=== PATIENT | male | born 1955 | race Caucasian/White ===

== ENCOUNTER 2020-09-30 19:46 | Emergency (ER) | payer MEDICARE, OTHER ==
[~2020-09-30] VITALS: Ht 200 cm; Wt 134.7 kg
--- NOTE | 2020-09-30 20:10 | ED Upper Extremity ---
General Chief Complaint: Upper Extremity Stated Complaint: L SHOULDER INJ Source: patient Exam Limitations: no limitations History of Present Illness Date Seen by Provider: Sep 30, 2020 Time Seen by Provider: 20:03 Initial Comments Mr. Daniels is a pleasant 64-year-old gentleman who just prior to arrival was playing Frisbee golf at [employer] and using his dominant right hand he did a under conflict and immediately started having severe pain in his left shoulder just distal to the glenohumeral joint. No prior injury there no fall and not on blood thinners. He did not take anything for pain yet. He rates it as a 7 out of 10 as long as he can split his left arm using his contralateral arm. Allergies and Home Medications Allergies Coded Allergies: No Known Drug Allergies (Unverified , 09/30/20) Patient Home Medication List Home Medication List Reviewed: Yes Review of Systems Constitutional: No chills, No diaphoresis EENTM: No ear discharge, No ear pain Respiratory: No cough, No short of breath Cardiovascular: No Hx of Intervention, No palpitations Gastrointestinal: No abdominal pain, No constipation, No diarrhea, No nausea Genitourinary: No discharge, No dysuria All Other Systems Reviewed Negative Unless Noted: Yes Past Daerisg-Yrfkpi-Uzwxtu Hx Patient Social History Alcohol Use: Denies Use Drug of Choice: Denies Physical Exam Vital Signs Vital Signs - First Documented 09/30/20 20:06 Temp 36.6 Pulse 86 Resp 18 B/P (MAP) 128/86 (100) Pulse Ox 96 O2 Delivery Room Air Capillary Refill : Height, Weight, BMI Height: '" Weight: lbs. oz. kg; BMI Method: General Appearance: WD/WN, mild distress HEENT: PERRL/EOMI, pharynx normal Neck: non-tender, full range of motion, supple, normal inspection Cardiovascular: normal peripheral pulses, regular rate, rhythm, no edema Respiratory: no respiratory distress, no accessory muscle use Shoulder: bone tenderness (Proximal shaft just past the glenohumeral joint), limited ROM (Left), pain, swelling Elbow/Forearm: normal inspection, non-tender, no evidence of injury, normal ROM, Left Wrist: Yes normal inspection, Yes non-tender, Yes no evidence of injury, Yes normal ROM Hand: normal inspection, non-tender, no evidence of injury, normal ROM, Left Neurologic/Psychiatric: no motor/sensory deficits, alert, normal mood/affect, oriented x 3 Skin: normal color, warm/dry Procedures/Interventions Additional Procedures: Arthrocentesis Aspirating Progress Discussed the risks, benefits and alternatives to aspirating his left shoulder and the patient elected to do it. We used sterile gloves and sterile technique and Betadine. After the Betadine had a few minutes to dry we then cleaned with chlorhexidine and then infiltrated the area with lidocaine. Using a 18-gauge 1/2 inch needle we put the needle into the joint space and were able to aspirate just a small amount of serosanguineous secretions. Unfortunately not enough to send the lab. We infiltrated the area with 40 mg Depo-Medrol and half cc of Marcaine half percent strength. Patient tolerated procedure well. We will put a Band-Aid over the wound. Progress/Results/Core Measures Results/Orders My Orders Orders - LITZY CAO Shoulder, Left, 3 Views (09/30/20 20:07) Methylprednisolone Acetate Inj (Depo-Med (09/30/20 21:00) Lidocaine 1% Inj 20 Ml (Xylocaine 1% Inj (09/30/20 21:00) Ketorolac Injection (Toradol Injection) (09/30/20 21:15) Medications Given in ED Current Medications Medications Dose Ordered Sig/Carmina Route Start Time Stop Time Status Last Admin Dose Admin Lidocaine HCl 20 ml ONCE ONCE INJ 09/30/20 21:00 09/30/20 21:01 DC 09/30/20 21:03 20 ML Methylprednisolone Acetate 40 mg ONCE ONCE IA 09/30/20 21:00 09/30/20 21:01 DC 09/30/20 21:03 40 MG Vital Signs/I&O 09/30/20 20:06 Temp 36.6 Pulse 86 Resp 18 B/P (MAP) 128/86 (100) Pulse Ox 96 O2 Delivery Room Air Progress Progress Note : Time: 20:09 Progress Note Patient declined anything for pain. We will get a plain film 3 view left shoulder x-ray Diagnostic Imaging Diagonstic Imaging: Xray Plain Films/CT/US/NM/MRI: other (Left shoulder 3 views) Comments NAME: ERENDIRA DANIELS MED REC#: [id number] PT STATUS: REG ER : 1955 PHYSICIAN: LITZY CAO MD ADMIT DATE: 09/30/20/ER Draft Date of Exam:09/30/20 SHOULDER, LEFT, 3 VIEWS INDICATION: Left shoulder pain. COMPARISON: None available. TECHNIQUE: 3 views of the left shoulder are obtained. FINDINGS: No acute fracture or traumatic malalignment. There appears to be some mineralization around the AC joint and glenohumeral joint which could be due to cartilage calcification. No osseous erosions. Joint spaces are fairly well-preserved. IMPRESSION: 1. No acute osseous abnormality about the left shoulder. 2. Potential soft tissue mineralizations around the glenohumeral and AC joints raise the possibility of CPPD arthropathy. Dictated on workstation # [id number] Dict: 09/30/202027 Trans: 09/30/202038 [facility] [id number] Interpreted by: LILY GALLEGOS MD Electronically signed by: Reviewed: Reviewed by Me Departure Impression Primary Impression: Left shoulder pain Qualified Codes: M25.512 - Pain in left shoulder Disposition: HOME, SELF-CARE Condition: Stable Departure-Patient Inst. Decision time for Depature: 21:17 Referrals: WAQAS RIVER MD (PCP/Family) Primary Care Physician Patient Instructions: Passive Range of Motion Exercises, Neck and Shoulders, Shoulder Pain (DC) Add. Discharge Instructions: We were not able to get any fluid out of the joint but the steroid should help even if it is a tendinitis of your left shoulder. If not seeing improvement in 1 week follow-up with your primary care doctor and discuss referral to orthopedic surgery, physical therapy etc. Naproxen or ibuprofen as well as Tylenol for pain. Ice 20 minutes on every 2 hours for the first 2 days as necessary for swelling and pain. Keep the sling on for the next week until you are seen by your physician. You may take the sling off to bathe. It is reasonable also to take your arm out of the sling several times a day and do passive range of motion using your right arm. Hydrocodone 1 tablet every 6 hours as necessary for severe breakthrough pain. All discharge instructions reviewed with patient and/or family. Voiced understanding. Scripts Hydrocodone/Acetaminophen (Hydrocodone-Acetamin 5-325 mg) 1 Each Tablet 1 TAB PO Q6H PRN for PAIN-MODERATE (5-7), #12 TAB 0 Refills Prov: LITZY CAO 09/30/20 Work/School Note: Work Release Form Date Seen in the Emergency Department: Sep 30, 2020 Return to Work: Oct 01, 2020 Restrictions: Need Release from Doctor Other Restrictions Listed Below: Left arm in sling and no lifting, pushing or pulling until 10/07/2020. Copy Copies To 1: WAQAS RIVER MD, TITUS J Sep 30, 2020 20:10
--- NOTE | 2020-09-30 20:40 | Diagnostic Imaging Report ---
INDICATION: Left shoulder pain. COMPARISON: None available. TECHNIQUE: 3 views of the left shoulder are obtained. FINDINGS: No acute fracture or traumatic malalignment. There appears to be some mineralization around the AC joint and glenohumeral joint which could be due to cartilage calcification. No osseous erosions. Joint spaces are fairly well-preserved. IMPRESSION: 1. No acute osseous abnormality about the left shoulder. 2. Potential soft tissue mineralizations around the glenohumeral and AC joints raise the possibility of CPPD arthropathy. Dictated by: Dictated on workstation # [id number]
[2020-09-30] MEDS ORDERED: LIDOCAINE 1% INJ 20 ML 20 ML VIAL INJ ONE (21:00)
[2020-09-30] MEDS ORDERED: methylPREDNISolone 40 MG/ML (DEPO MEDROL) VIAL IA ONE (21:00)
[2020-09-30] MEDS ORDERED: KETOROLAC 60 MG/2 ML VIAL IM ONE (21:15)
[2020-09-30] MEDS ORDERED: ACHD5005 PO (21:19)
[2020-09-30 21:42] VITALS: BP 124/76
== END 2020-09-30 21:42 | disposition home or self-care (01) ==
LOC: ER 19:49
DX: M25.411 Effusion, right shoulder (principal); X50.9XXA Other and unspecified overexertion or strenuous movements or postures, initial encounter; Y93.74 Activity, frisbee
CPT/HCPCS: 73030; 99282; A4565

== ENCOUNTER 2021-10-31 19:33 | Emergency (ER) | payer MEDICARE ==
[~2021-10-31] VITALS: Ht 198 cm; Wt 133.8 kg
[~2021-10-31 19:33] MED LIST: ACHD5005 PO
[2021-10-31 19:48] VITALS: BP 122/83
--- NOTE | 2021-10-31 20:14 | ED GU-Male ---
General Chief Complaint: - Reproductive Stated Complaint: R TESTICLE SWOLLEN Nursing Triage Note: PRESENTS W/ C/O RIGHT TESTICULAR PAIN THAT STARTED YESTERDAY MORNING. nOW HAVING INABILITY TO CONTROL URINE. hAS URGENCY AND FREQUENCY. tESTICULE NOW MORE SWOLLEN. Source: patient Exam Limitations: no limitations History of Present Illness Date Seen by Provider: October 31, 2021 Time Seen by Provider: 19:57 Initial Comments Patient presents ER by private conveyance with significant other chief complaint yesterday morning approximately 36 hours ago patient started experiencing some right testicular swelling and pain which was mild to moderate at first and is now severe. He takes Percocet for his back pain and he took a tablet that before coming in with no significant relief of pain. He has dysuria which is worse in the morning and gets better throughout the day for the past 2 days. No history of surgery or frequent UTIs. No history of inguinal hernias Allergies and Home Medications Allergies Coded Allergies: No Known Drug Allergies (Unverified , 09/30/20) Patient Home Medication List Home Medication List Reviewed: Yes Hydrocodone/Acetaminophen (Hydrocodone-Acetamin 5-325 mg) 1 Each Tablet, 1 TAB PO Q6H PRN for PAIN-MODERATE (5-7) Prescribed by: LITZY CAO on 09/30/202119 Review of Systems Review of Systems Constitutional: No chills, No fever, No malaise EENTM: No ear discharge, No ear pain Respiratory: No cough, No short of breath Cardiovascular: No chest pain, No edema Gastrointestinal: No abdominal pain, No nausea Genitourinary: denies discharge, denies dysuria Musculoskeletal: No back pain, No joint pain All Other Systemes Reviewed Negative Unless Noted: Yes Past Kfeisie-Egyfoj-Vjhzrd Hx Patient Social History Tobacco Use?: No Use of E-Cig and/or Vaping dev: No Substance use?: Yes Substance type: Marijuana Alcohol Use?: No Seasonal Allergies Seasonal Allergies: No Past Medical History Surgeries: Yes Orthopedic Respiratory: No Cardiac: No Neurological: No Genitourinary: No Gastrointestinal: No Musculoskeletal: Yes (ROTATOR CUFF REPLAIR & AC JOINT. BILAT KNEE REPLACEMENT ) Endocrine: Yes Diabetes, Non-Insulin dep HEENT: No Cancer: No Psychosocial: No Integumentary: No Physical Exam Vital Signs Vital Signs - First Documented 10/31/21 19:48 Temp 36.7 Pulse 112 Resp 22 B/P (MAP) 122/83 (96) Pulse Ox 98 O2 Delivery Room Air Capillary Refill : Less Than 3 Seconds Height, Weight, BMI Height: '" Weight: lbs. oz. kg; 34.00 BMI Method: General Appearance: WD/WN, mild distress HEENT: PERRL/EOMI, pharynx normal Neck: full range of motion, normal inspection Cardiovascular: normal peripheral pulses, regular rate, rhythm Respiratory: lungs clear, normal breath sounds, no respiratory distress, no accessory muscle use Gastrointestinal: normal bowel sounds, non tender, soft Genital/Rectal: other (No lesions on the scrotum or penis. No exudate or drainage from the urethral meatus. No masses palpable in the penis. The scrotum contains an erythematous skin on the right side with a testicle on the right that is approximately 3-4 times the size of his left testicle and is tender to palpation without hard, firm mass. Inguinal canals free of any abdominal content) Extremities: non-tender, normal inspection Neurologic/Psychiatric: alert, normal mood/affect, oriented x 3 Progress/Results/Core Measures Suspected Sepsis SIRS Temperature: Pulse: 112 Respiratory Rate: 22 Laboratory Tests 10/31/21 21:20: White Blood Count 15.3H Blood Pressure 122 /83 Mean: 96 Laboratory Tests 10/31/21 21:20: Creatinine 1.21, Platelet Count 216 Results/Orders Lab Results Laboratory Tests Test 10/31/21 20:52 10/31/21 21:20 Range/Units Urine Color YELLOW Urine Clarity SL CLOUDY Urine pH 5.5 5-9 Urine Specific [place] 1.025 H 1.016-1.022 Urine Protein NEGATIVE NEGATIVE Urine Glucose (UA) NEGATIVE NEGATIVE Urine Ketones NEGATIVE NEGATIVE Urine Nitrite NEGATIVE NEGATIVE Urine Bilirubin NEGATIVE NEGATIVE Urine Urobilinogen 0.2 < = 1.0 MG/DL Urine Leukocyte Esterase 2+ H NEGATIVE Urine RBC (Auto) TRACE-I H NEGATIVE Urine RBC 5-10 H /HPF Urine WBC 10-25 H /HPF Urine Squamous Epithelial Cells 0-2 /HPF Urine Crystals NONE /LPF Urine Bacteria FEW H /HPF Urine Casts NONE /LPF Urine Mucus SMALL H /LPF Urine Culture Indicated YES White Blood Count 15.3 H 4.3-11.0 10^3/uL Red Blood Count 4.61 4.30-5.52 10^6/uL Hemoglobin 13.5 13.3-17.7 g/dL Hematocrit 42 40-54 % Mean Corpuscular Volume 90 80-99 fL Mean Corpuscular Hemoglobin 29 25-34 pg Mean Corpuscular Hemoglobin Concent 33 32-36 g/dL Red Cell Distribution Width 13.7 10.0-14.5 % Platelet Count 216 130-400 10^3/uL Mean Platelet Volume 10.7 9.0-12.2 fL Immature Granulocyte % (Auto) 0 % Neutrophils (%) (Auto) 85 H 42-75 % Lymphocytes (%) (Auto) 7 L 12-44 % Monocytes (%) (Auto) 6 0-12 % Eosinophils (%) (Auto) 1 0-10 % Basophils (%) (Auto) 0 0-10 % Neutrophils # (Auto) 13.1 H 1.8-7.8 10^3/uL Lymphocytes # (Auto) 1.1 1.0-4.0 10^3/uL Monocytes # (Auto) 1.0 0.0-1.0 10^3/uL Eosinophils # (Auto) 0.1 0.0-0.3 10^3/uL Basophils # (Auto) 0.0 0.0-0.1 10^3/uL Immature Granulocyte # (Auto) 0.1 0.0-0.1 10^3/uL Neutrophils % (Manual) 89 % Lymphocytes % (Manual) 9 % Monocytes % (Manual) 8 % Eosinophils % (Manual) 1 % Blood Morphology Comment NORMAL Sodium Level 140 135-145 MMOL/L Potassium Level 4.0 3.6-5.0 MMOL/L Chloride Level 103 98-107 MMOL/L Carbon Dioxide Level 22 21-32 MMOL/L Anion Gap 15 H 5-14 MMOL/L Blood Urea Nitrogen 16 7-18 MG/DL Creatinine 1.21 0.60-1.30 MG/DL Estimat Glomerular Filtration Rate 66 BUN/Creatinine Ratio 13 Glucose Level 216 H 70-105 MG/DL Calcium Level 9.4 8.5-10.1 MG/DL My Orders Orders - LITZY CAO Fentanyl Inj (Sublimaze Injection) (10/31/21 20:15) Ua Culture If Indicated (10/31/21 20:09) Cbc With Automated Diff (10/31/21 20:09) Basic Metabolic Panel (10/31/21 20:09) Us Scrotum (Testicle) [id number] (10/31/21 20:14) Ed Iv/Invasive Line Start (10/31/21 20:14) Ceftriaxone 1 Gm Pre-Mix (Rocephin 1 Gm (10/31/21 21:00) Urine Culture (10/31/21 20:52) Manual Differential (10/31/21 21:20) Medications Given in ED Current Medications Medications Dose Ordered Sig/Carmina Route Start Time Stop Time Status Last Admin Dose Admin Ceftriaxone Sodium/Dextrose 50 ml @ 100 mls/hr ONCE ONCE IV 10/31/21 21:00 10/31/21 21:29 DC 10/31/21 21:27 100 MLS/HR Fentanyl Citrate 75 mcg ONCE ONCE IV 10/31/21 20:15 10/31/21 20:16 DC 10/31/21 21:24 75 MCG Vital Signs/I&O 10/31/21 19:48 Temp 36.7 Pulse 112 Resp 22 B/P (MAP) 122/83 (96) Pulse Ox 98 O2 Delivery Room Air Capillary Refill : Less Than 3 Seconds Blood Pressure Mean: 96 Progress Note : Time: 20:13 Progress Note Suspect a UTI that is turned into an orchitis/epididymitis. Pains been going on for significant amount of time so he given some fentanyl and have asked ultrasound to come in which they have agreed to scan him. Basic labs. Diagnostic Imaging Diagonstic Imaging: Ultrasound Plain Films/CT/US/NM/MRI: other (Scrotum) Comments Orchitis and epididymitis of the right testicle with a small amount of physiologic fluid seen. No masses. Good blood flow. No torsion. [facility] [place] NAME: ERENDIRA HOPKINS [facility] REC#: [id number] PT STATUS: REG ER : 1955 PHYSICIAN: LITZY CAO MD ADMIT DATE: 10/31/21/ER Draft Date of Exam:10/31/21 US SCROTUM (Testicle) [id number] Clinical indications: Patient with red painful swollen right testicle. Exam: Ultrasound of the scrotum with multiple real-time grayscale images were obtained in various projections. Additional spectral analysis and color Doppler duplex images were also obtained. Comparison: None. Findings: Right testicle: Right testis measures 5.4 cm x 3.0 cm x 3.6 cm. The right testis is homogeneous in echogenicity with no focal mass present. There is enlarged and hypervascular right epididymis region which may be related to epididymitis. There is also slight increased Doppler flow involving the right testicle in comparison to the left testicle which may be related to orchitis. Otherwise right testicle has normal spectral Doppler waveform. There is no varicocele. Small right hydrocele is noted. There is no testicular torsion. Left testicle: Left testis measures 5.5 cm x 2.3 cm x 3.2 cm. Left testis is homogeneous in echogenicity, with no focal mass present. Blood flow is present in left testis on color flow imaging and has normal appearing spectral Doppler waveform. Left epididymis is unremarkable. There is no varicocele. There is no hydrocele. There is no testicular torsion. Impression: 1: Right testicular findings are concerning for orchitis-epididymitis. There is a small right hydrocele. 2: Left testicle is unremarkable. Dictated on workstation # [id number] Dict: 10/31/212114 Trans: 10/31/212122 [facility] [id number] Interpreted by: BLAYNE DUARTE MD Electronically signed by: Reviewed: Reviewed by Me Departure Impression Primary Impression: Orchitis and epididymitis Disposition: 01 HOME, SELF-CARE Condition: Stable Departure-Patient Inst. Decision time for Depature: 22:11 Referrals: WAQAS RIVER MD (PCP/Family) Primary Care Physician KAVYA DOWNEY MD Patient Instructions: Epididymitis (DC) Add. Discharge Instructions: This is an infection of the testicle and surrounding tissue. It is typically easily treated with antibiotics. Doxycycline 1 capsule twice a day for the next 10 days. You can start this tomorrow, 11/01/2021. Percocet 1 to 2 tablets every 4 hours as needed for pain. You might want to take something to keep your bowels regular such as MiraLAX, Colace etc. Pain should start improving in 3 to 4 days of antibiotics. Follow-up with the urologist, Dr. Downey for help with managing your symptoms. All discharge instructions reviewed with patient and/or family. Voiced u nderstanding. Scripts Ondansetron (Ondansetron Odt) 4 Mg Tab.rapdis 4 MG PO Q6H PRN for NAUSEA/VOMITING, #12 TAB 0 Refills Prov: LITZY CAO 10/31/21 Doxycycline Hyclate (Doxycycline Hyclate) 100 Mg Tablet 100 MG PO BID for 10 Days, #20 TAB 0 Refills Prov: LITZY CAO 10/31/21 Oxycodone HCl/Acetaminophen (Percocet 5-325 mg Tablet) 5 Mg-325 Mg Tablet 1-2 TAB PO Q4H PRN for PAIN-MODERATE MDD 6 for 5 Days, #30 TAB 0 Refills Prov: LITZY CAO 10/31/21 Copy Copies To 1: KAVYA DOWNEY MD, TITUS J October 31, 2021 20:14
[2021-10-31] MEDS ORDERED: fentaNYL INJ 100 MCG/2 ML AMP IV ONE (20:15)
[2021-10-31 20:57] LABS: BILIRUBIN,URINE NEGATIVE (NEGATIVE); CLARITY,URINE SL CLOUDY; COLOR,URINE YELLOW; GLUCOSE, URINE (UA) NEGATIVE (NEGATIVE); KETONES,URINE NEGATIVE (NEGATIVE); LEUKOCYTE ESTERASE ,URINE 2+ (NEGATIVE); NITRITE,URINE NEGATIVE (NEGATIVE); PH,URINE 5.5 (5-9); PROTEIN,URINE NEGATIVE (NEGATIVE)
[2021-10-31] MEDS ORDERED: cefTRIAXone 1 GM PRE-MIX 50 ML IV ONE (21:00)
[2021-10-31 21:09] LABS: BACTERIA,URINE FEW /HPF; SQUAMOUS EPITHELIAL CELL,UR 0-2 /HPF
--- NOTE | 2021-10-31 21:24 | Diagnostic Imaging Report ---
Clinical indications: Patient with red painful swollen right testicle. Exam: Ultrasound of the scrotum with multiple real-time grayscale images were obtained in various projections. Additional spectral analysis and color Doppler duplex images were also obtained. Comparison: None. Findings: Right testicle: Right testis measures 5.4 cm x 3.0 cm x 3.6 cm. The right testis is homogeneous in echogenicity with no focal mass present. There is enlarged and hypervascular right epididymis region which may be related to epididymitis. There is also slight increased Doppler flow involving the right testicle in comparison to the left testicle which may be related to orchitis. Otherwise right testicle has normal spectral Doppler waveform. There is no varicocele. Small right hydrocele is noted. There is no testicular torsion. Left testicle: Left testis measures 5.5 cm x 2.3 cm x 3.2 cm. Left testis is homogeneous in echogenicity, with no focal mass present. Blood flow is present in left testis on color flow imaging and has normal appearing spectral Doppler waveform. Left epididymis is unremarkable. There is no varicocele. There is no hydrocele. There is no testicular torsion. Impression: 1: Right testicular findings are concerning for orchitis-epididymitis. There is a small right hydrocele. 2: Left testicle is unremarkable. Dictated by: Dictated on workstation # [id number]
[2021-10-31 21:31] LABS: BASOPHILS % (AUTO) 0 % (0-10); EOSINOPHILS # (AUTO) 0.1 10^3/uL (0.0-0.3); EOSINOPHILS % (AUTO) 1 % (0-10); HEMATOCRIT 42 % (40-54); HEMOGLOBIN 13.5 g/dL (13.3-17.7); LYMPHOCYTES # (AUTO) 1.1 10^3/uL (1.0-4.0); LYMPHOCYTES % (AUTO) 7 % (12-44); MEAN CORPUSCULAR HEMOGLOBIN 29 pg (25-34); MEAN CORPUSCULAR HGB CONC 33 g/dL (32-36); MEAN CORPUSCULAR VOLUME 90 fL (80-99); MEAN PLATELET VOLUME 10.7 fL (9.0-12.2); MONOCYTES % (AUTO) 6 % (0-12); NEUTROPHILS # (AUTO) 13.1 10^3/uL (1.8-7.8); NEUTROPHILS % (AUTO) 85 % (42-75); PLATELET COUNT 216 10^3/uL (130-400); WHITE BLOOD COUNT 15.3 10^3/uL (4.3-11.0)
[2021-10-31 22:01] LABS: CALCIUM 9.4 MG/DL (8.5-10.1)
[2021-10-31 22:06] LABS: CREATININE SERUM 1.21 MG/DL (0.60-1.30)
[2021-10-31 22:08] LABS: EOSINOPHILS % (MANUAL) 1 %; LYMPHOCYTES % (MANUAL) 9 %; MONOCYTES % (MANUAL) 8 %; NEUTROPHILS % (MANUAL) 89 %; RBC MORPH NORMAL
[2021-10-31] MEDS ORDERED: DOXY100T2 PO (22:16)
[2021-10-31] MEDS ORDERED: ONDA4TAB11 PO (22:16)
[2021-10-31] MEDS ORDERED: OXYC-199 PO (22:16)
[2021-10-31] MEDS ORDERED: morphine INJ 10 MG/ML 1ML (SYR OR VIAL) IVP STA (22:25)
[2021-10-31] MEDS ORDERED: morphine INJ 10 MG/ML 1ML (SYR OR VIAL) ONE (22:26)
== END 2021-10-31 22:35 | disposition home or self-care (01) ==
LOC: EDUNIT# 19:33 → ER 19:38
DX: N45.3 Epididymo-orchitis (principal)
CPT/HCPCS: 36415; 76870; 80048; 81000; 85007; 85027; 87077; 87088; 87186

== ENCOUNTER 2021-11-03 14:50 | Inpatient (IN) | payer MEDICARE ==
[~2021-11-03] VITALS: Ht 196 cm; Wt 134.2 kg
[~2021-11-03 14:50] MED LIST changes: +DOXY100T2 PO; +ONDA4TAB11 PO; +OXYC-199 PO
[2021-11-03] MEDS ORDERED: VANCOMYCIN INJECTION 2,000 MG in NS IV 500 ML 500 ML IV ONE (15:08)
[2021-11-03] MEDS ORDERED: HYDROmorphone 2 MG/ML VIAL (DILAUDID) IV ONE (15:15)
[2021-11-03] MEDS ORDERED: NS IV 1000 ML 1,000 ML IV SCH ×2 (15:15)
[2021-11-03] MEDS ORDERED: ONDANSETRON 4 MG/2 ML (SDV) Z0FRAN IVP ONE (15:15)
[2021-11-03] MEDS ORDERED: CEFEPIME INJECTION 1,000 MG in NS (IVPB) 50 ML IV ONE (15:15)
[2021-11-03 15:20] LABS: BASOPHILS % (AUTO) 0 % (0-10); EOSINOPHILS # (AUTO) 0.3 10^3/uL (0.0-0.3); EOSINOPHILS % (AUTO) 3 % (0-10); HEMATOCRIT 41 % (40-54); HEMOGLOBIN 13.6 g/dL (13.3-17.7); LYMPHOCYTES # (AUTO) 1.9 X 10^3 (1.0-4.0); LYMPHOCYTES % (AUTO) 15 % (12-44); MEAN CORPUSCULAR HEMOGLOBIN 29 pg (25-34); MEAN CORPUSCULAR HGB CONC 33 g/dL (32-36); MEAN CORPUSCULAR VOLUME 89 fL (80-99); MEAN PLATELET VOLUME 10.8 fL (9.0-12.2); MONOCYTES # (AUTO) 0.9 X 10^3 (0.0-1.0); MONOCYTES % (AUTO) 8 % (0-12); NEUTROPHILS # (AUTO) 9.1 X 10^3 (1.8-7.8); NEUTROPHILS % (AUTO) 74 % (42-75); PLATELET COUNT 289 10^3/uL (130-400); WHITE BLOOD COUNT 12.2 10^3/uL (4.3-11.0)
--- NOTE | 2021-11-03 15:20 | ED GU-Male ---
General Chief Complaint: - Reproductive Stated Complaint: R TESTICLE SWOLLEN Source: patient, spouse Exam Limitations: no limitations History of Present Illness Date Seen by Provider: November 03, 2021 Time Seen by Provider: 14:55 Initial Comments Patient to the ER by private conveyance from home with his spouse and chief complaint of swollen, painful right testicle. He was seen Wednesday night, 3 days ago for the same symptoms. He was diagnosed with orchitis, given Rocephin and put out on doxycycline which he states he has been taking. He typically takes Percocet tens 2-3 times a day for his chronic back pain and was sent home with more Percocets as well as nausea medicine. He says his nausea starting to come back now and he rates his pain as a 10 out of 10. He had some subjective fevers and chills last night which were new. He feels like the swelling has significantly gotten worse rather than better and called the urologist today who told him to come to the ER to be checked out. Allergies and Home Medications Allergies Coded Allergies: morphine (Verified Allergy, Unknown, HIVES, 11/03/21) Patient Home Medication List Home Medication List Reviewed: Yes Doxycycline Hyclate (Doxycycline Hyclate) 100 Mg Tablet, 100 MG PO BID Prescribed by: LITZY CAO on 10/31/212215 Hydrocodone/Acetaminophen (Hydrocodone-Acetamin 5-325 mg) 1 Each Tablet, 1 TAB PO Q6H PRN for PAIN-MODERATE (5-7) Prescribed by: LITZY CAO on 09/30/202119 Ondansetron (Ondansetron Odt) 4 Mg Tab.rapdis, 4 MG PO Q6H PRN for NAUSEA/VOMITING Prescribed by: LITZY CAO on 10/31/212215 Oxycodone HCl/Acetaminophen (Percocet 5-325 mg Tablet) 5 Mg-325 Mg Tablet, 1-2 TAB PO Q4H PRN for PAIN-MODERATE Prescribed by: LITZY CAO on 10/31/212215 Review of Systems Review of Systems Constitutional: No chills, No diaphoresis EENTM: No ear discharge, No ear pain Respiratory: No cough, No short of breath Cardiovascular: No chest pain, No edema Gastrointestinal: No abdominal pain, No nausea, No vomiting Genitourinary: denies discharge, denies dysuria Musculoskeletal: No back pain, No joint pain All Other Systemes Reviewed Negative Unless Noted: Yes Past Rdovrpb-Rztcay-Eevpxt Hx Patient Social History Tobacco Use?: No Use of E-Cig and/or Vaping dev: No Substance use?: Yes Substance type: Marijuana Substance frequency: Several times a month Alcohol Use?: No Pt feels they are or have been: No Seasonal Allergies Seasonal Allergies: No Past Medical History Surgery/Hospitalization HX: DM Surgeries: Yes Orthopedic Respiratory: No Cardiac: No Neurological: No Genitourinary: No Gastrointestinal: No Musculoskeletal: Yes (ROTATOR CUFF REPLAIR & AC JOINT. BILAT KNEE REPLACEMENT ) Endocrine: Yes Diabetes, Non-Insulin dep HEENT: No Cancer: No Psychosocial: No Integumentary: No Physical Exam Vital Signs Vital Signs - First Documented 11/03/21 15:00 Temp 36.8 Pulse 89 Resp 20 B/P (MAP) 127/77 (94) Capillary Refill : Height, Weight, BMI Height: '" Weight: lbs. oz. kg; 34.00 BMI Method: General Appearance: WD/WN, mild distress HEENT: PERRL/EOMI, pharynx normal Neck: full range of motion, normal inspection Cardiovascular: normal peripheral pulses, regular rate, rhythm Respiratory: no respiratory distress, no accessory muscle use Gastrointestinal: non tender, soft Genital/Rectal: other (Penis unremarkable without lesion or discharge. Scrotum on the right side swollen more than left with large, tender right testis approximately 7 cm long at greatest diameter.) Extremities: normal range of motion, normal capillary refill Neurologic/Psychiatric: alert, normal mood/affect, oriented x 3 Skin: ecchymosis (Right scrotum and perineal area without induration) Focused Exam Lactate Level 11/03/21 15:22: Lactic Acid Level 1.77 Lactic Acid Level Laboratory Tests Test 11/03/21 15:22 Lactic Acid Level 1.77 MMOL/L (0.50-2.00) Progress/Results/Core Measures Suspected Sepsis SIRS Temperature: Pulse: Respiratory Rate: Laboratory Tests 11/03/21 15:00: White Blood Count 12.2H Blood Pressure / Mean: 11/03/21 15:22: Lactic Acid Level 1.77 Laboratory Tests 11/03/21 15:00: Creatinine 0.91, INR Comment 1.1, Platelet Count 289, Total Bilirubin 1.7H Results/Orders Lab Results Laboratory Tests Test 11/03/21 15:00 11/03/21 15:22 Range/Units White Blood Count 12.2 H 4.3-11.0 10^3/uL Red Blood Count 4.63 4.30-5.52 10^6/uL Hemoglobin 13.6 13.3-17.7 g/dL Hematocrit 41 40-54 % Mean Corpuscular Volume 89 80-99 fL Mean Corpuscular Hemoglobin 29 25-34 pg Mean Corpuscular Hemoglobin Concent 33 32-36 g/dL Red Cell Distribution Width 13.5 10.0-14.5 % Platelet Count 289 130-400 10^3/uL Mean Platelet Volume 10.8 9.0-12.2 fL Immature Granulocyte % (Auto) 0 % Neutrophils (%) (Auto) 74 42-75 % Lymphocytes (%) (Auto) 15 12-44 % Monocytes (%) (Auto) 8 0-12 % Eosinophils (%) (Auto) 3 0-10 % Basophils (%) (Auto) 0 0-10 % Neutrophils # (Auto) 9.1 H 1.8-7.8 X 10^3 Lymphocytes # (Auto) 1.9 1.0-4.0 X 10^3 Monocytes # (Auto) 0.9 0.0-1.0 X 10^3 Eosinophils # (Auto) 0.3 0.0-0.3 10^3/uL Basophils # (Auto) 0.0 0.0-0.1 10^3/uL Immature Granulocyte # (Auto) 0.0 0.0-0.1 10^3/uL Prothrombin Time 14.7 12.2-14.7 SEC INR Comment 1.1 0.8-1.4 Activated Partial Thromboplast Time 37 H 24-35 SEC Sodium Level 138 135-145 MMOL/L Potassium Level 4.1 3.6-5.0 MMOL/L Chloride Level 102 98-107 MMOL/L Carbon Dioxide Level 21 21-32 MMOL/L Anion Gap 15 H 5-14 MMOL/L Blood Urea Nitrogen 12 7-18 MG/DL Creatinine 0.91 0.60-1.30 MG/DL Estimat Glomerular Filtration Rate 94 BUN/Creatinine Ratio 13 Glucose Level 162 H 70-105 MG/DL Calcium Level 10.0 8.5-10.1 MG/DL Corrected Calcium 10.0 8.5-10.1 MG/DL Total Bilirubin 1.7 H 0.1-1.0 MG/DL Aspartate Amino Transf (AST/SGOT) 42 H 5-34 U/L Alanine Aminotransferase (ALT/SGPT) 36 0-55 U/L Alkaline Phosphatase 71 40-136 U/L Total Protein 8.2 6.4-8.2 GM/DL Albumin 4.0 3.2-4.5 GM/DL Lactic Acid Level 1.77 0.50-2.00 MMOL/L My Orders Orders - LITZY CAO Cbc With Automated Diff (11/03/21 15:08) Comprehensive Metabolic Panel (11/03/21 15:08) Blood Culture (11/03/21 15:08) Sputum Culture (11/03/21 15:08) Urinalysis (11/03/21 15:08) Urine Culture (11/03/21 15:08) Protime With Inr (11/03/21 15:08) Partial Thromboplastin Time (11/03/21 15:08) Ed Iv/Invasive Line Start (11/03/21 15:08) Ed Iv/Invasive Line Start (11/03/21 15:08) Vital Signs Adult Sepsis Patie Q15M (11/03/21 15:08) Remove Rings In Anticipation O (11/03/21 15:08) Lactic Acid Analyzer (11/03/21 15:08) Ns Iv 1000 Ml (Sodium Chloride 0.9%) (11/03/21 15:15) Cefepime Injection (Maxipime Injection) (11/03/21 15:15) Vancomycin Injection (Vancomycin Injecti (11/03/21 15:08) Ed Iv/Invasive Line Start (11/03/21 15:08) Us Scrotum (Testicle) [id number] (11/03/21 15:12) Ed Iv/Invasive Line Start (11/03/21 15:12) Ns Iv 1000 Ml (Sodium Chloride 0.9%) (11/03/21 15:15) Ondansetron Injection (Zofran Injectio (11/03/21 15:15) Hydromorphone Injection (Dilaudid Inject (11/03/21 15:15) Neis Jorge Dna Urine Test (5/9/22 16:20) Chlamydia Trachomatis Urine (11/03/21 16:20) Syphilis Antibody Screen (11/03/21 16:20) Ed Admission (Communication) (11/03/21 16:20) Medications Given in ED Current Medications Medications Dose Ordered Sig/Carmina Route Start Time Stop Time Status Last Admin Dose Admin Cefepime HCl 1000 mg/Sodium Chloride 50 ml @ 100 mls/hr ONCE ONCE IV 11/03/21 15:15 11/03/21 15:44 DC 11/03/21 16:39 100 MLS/HR Hydromorphone HCl 0.5 mg ONCE ONCE IV 11/03/21 15:15 11/03/21 15:16 DC 11/03/21 15:20 0.5 MG Ondansetron HCl 8 mg ONCE ONCE IVP 11/03/21 15:15 11/03/21 15:16 DC 11/03/21 15:19 8 MG Vital Signs/I&O 11/03/21 15:00 Temp 36.8 Pulse 89 Resp 20 B/P (MAP) 127/77 (94) Capillary Refill : Progress Note : Time: 15:19 Progress Note Significant increase in swelling and pain. Abscess? Plan to cover with broad- spectrum antibiotics, obtain cultures and obtain ultrasound to make sure he has good blood flow to the testicle. Redraw labs and blood cultures. Diagnostic Imaging Diagonstic Imaging: Ultrasound Plain Films/CT/US/NM/MRI: other (Scrotum) Comments [facility], [place] NAME: KELLIEERENDIRA J [facility] REC#: [id number] PT STATUS: REG ER : 1955 PHYSICIAN: LITZY CAO MD ADMIT DATE: 11/03/21/ER Signed Date of Exam:11/03/21 US SCROTUM (Testicle) [id number] PROCEDURE: US Scrotum. TECHNIQUE: Multiple real-time grayscale images were obtained over the scrotum in various projections bilaterally. INDICATION: Swelling, pain. COMPARISON: October 31, 2021. FINDINGS: The right testicle is mildly enlarged measuring 5.5 x 3.8 x 2.9 cm. It maintains a homogeneous echotexture without intratesticular mass. Vascular flow throughout the right testicle has increased throughout. The right epididymis is prominent with diffusely increased vascularity throughout. Small right-sided hydrocele. The left testicle measures 3.9 x 2.4 x 1.8 cm. It maintains a homogeneous echotexture without discrete intratesticular mass. Vascular flow is noted within the left testicle. Tiny anechoic cyst is noted within the left epididymal head. Otherwise, the left epididymis is unremarkable. No significant left-sided hydrocele. IMPRESSION: Findings consistent with right-sided epididymo-orchitis. Small right-sided hydrocele. Small left epididymal head cyst. Dictated by: Dictated on workstation # [id number] Dict: 11/03/21 1621 Trans: 11/03/21 1631 [id number] [id number] Interpreted by: LAWANDA MURDOCK MD Electronically signed by: LAWANDA MURDOCK MD 11/03/21 1631 Reviewed: Reviewed by Me Departure Communication (Admissions) Time/Spoke to Admitting Phy: 16:10 Discussed the case with Dr. Asif and she agrees to admit the patient on broad- spectrum antibiotics, gonorrhea and chlamydia on the urinalysis and pain management. She will write queued orders. Time/Spoke to Consulting Phy: 16:15 Discussed the case with Dr. Joaquin, urology and he agrees to consult on the case. He wants scrotal support and bedrest with bathroom privileges. He is okay with cefepime and vancomycin. Impression Primary Impression: Orchitis and epididymitis Additional Impression: Sepsis Qualified Codes: A41.9 - Sepsis, unspecified organism Disposition: ADMITTED INPATIENT Condition: Stable Admissions Decision to Admit Reason: Admit from ER (General) Decision to Admit/Date: November 03, 2021 Time/Decision to Admit Time: 16:10 Departure-Patient Inst. Referrals: WAQAS RIVER MD (PCP/Family) Primary Care Physician LITZY CAO November 03, 2021 15:19
[2021-11-03 15:38] LABS: POTASSIUM 4.1 MMOL/L (3.6-5.0)
[2021-11-03 15:39] LABS: INR 1.1 (0.8-1.4); PROTHROMBIN TIME PATIENT 14.7 SEC (12.2-14.7)
[2021-11-03 15:40] LABS: TOTAL PROTEIN 8.2 GM/DL (6.4-8.2)
[2021-11-03 15:42] LABS: BILIRUBIN,TOTAL 1.7 MG/DL (0.1-1.0)
[2021-11-03 15:44] LABS: CREATININE SERUM 0.91 MG/DL (0.60-1.30)
--- NOTE | 2021-11-03 16:31 | Diagnostic Imaging Report ---
PROCEDURE: US Scrotum. TECHNIQUE: Multiple real-time grayscale images were obtained over the scrotum in various projections bilaterally. INDICATION: Swelling, pain. COMPARISON: October 31, 2021. FINDINGS: The right testicle is mildly enlarged measuring 5.5 x 3.8 x 2.9 cm. It maintains a homogeneous echotexture without intratesticular mass. Vascular flow throughout the right testicle has increased throughout. The right epididymis is prominent with diffusely increased vascularity throughout. Small right-sided hydrocele. The left testicle measures 3.9 x 2.4 x 1.8 cm. It maintains a homogeneous echotexture without discrete intratesticular mass. Vascular flow is noted within the left testicle. Tiny anechoic cyst is noted within the left epididymal head. Otherwise, the left epididymis is unremarkable. No significant left-sided hydrocele. IMPRESSION: Findings consistent with right-sided epididymo-orchitis. Small right-sided hydrocele. Small left epididymal head cyst. Dictated by: Dictated on workstation # [id number]
--- NOTE | 2021-11-03 17:08 | Progress Note ---
Subjective Subjective/Events-last exam 66 yo male with a past medical hx of diabetes and recent spinal surgery presented for right testicular swelling. Pt reports a week and a half ago he had burning with urination in the morning that improve throughout the day. Then on Wednesday he noticed right testicular swelling and pain. Pt states he came to the E D and was given Rocephin and Doxycycline which he was compliant with taking. Pt was also prescribed opioid pain medication for a recent spinal surgery that he was taking for the pain. Pt reports the testicular swelling and pain worsened so he reported back to the ED today. Pt states he has had some nausea and constipation since starting the opioids. Pt reports having a fever of 101 yesterday, but this morning it was 96. Pt denies SOA, chest pain, palpitations, dysuria, urinary frequency, back pain or LE edema. Review of Systems General: No Chills, No Fatigue HEENT: No Head Aches, No Visual Changes Pulmonary: No Dyspnea; Cough Cardiovascular: No: Chest Pain, Palpitations Gastrointestinal: Nausea, Constipation; No: Vomiting, Diarrhea Genitourinary: No Dysuria Musculoskeletal: No: neck pain, shoulder pain, back pain Neurological: No: Weakness, Numbness Focused Exam Lactate Level 11/03/21 15:22: Lactic Acid Level 1.77 Lactic Acid Level Laboratory Tests Test 11/03/21 15:22 Lactic Acid Level 1.77 MMOL/L (0.50-2.00) Objective Exam Last Set of Vital Signs Vital Signs Date Time Temp Pulse Resp B/P (MAP) Pulse Ox O2 Delivery O2 Flow Rate FiO2 11/03/21 15:00 36.8 89 20 127/77 (94) Capillary Refill : General: Alert, Oriented X3, Cooperative HEENT: Atraumatic, PERRLA Lungs: Clear to Auscultation Heart: Regular Rate, Normal S1, Normal S2 Abdomen: Normal Bowel Sounds, Soft Extremities: No Clubbing, No Cyanosis, No Edema Skin: Other (erythema and edema of right testicle) Neuro: Normal Speech, Sensation Intact Psych/Mental Status: Mental Status NL, Mood NL Results/Procedures Lab Laboratory Tests 11/03/21 15:00: White Blood Count 12.2H, Red Blood Count 4.63, Hemoglobin 13.6, Hematocrit 41, Mean Corpuscular Volume 89, Mean Corpuscular Hemoglobin 29, Mean Corpuscular Hemoglobin Concent 33, Red Cell Distribution Width 13.5, Platelet Count 289, Mean Platelet Volume 10.8, Immature Granulocyte % (Auto) 0, Neutrophils (%) (Auto) 74, Lymphocytes (%) (Auto) 15, Monocytes (%) (Auto) 8, Eosinophils (%) (Auto) 3, Basophils (%) (Auto) 0, Neutrophils # (Auto) 9.1H, Lymphocytes # (Auto) 1.9, Monocytes # (Auto) 0.9, Eosinophils # (Auto) 0.3, Basophils # (Auto) 0.0, Immature Granulocyte # (Auto) 0.0, Prothrombin Time 14.7, INR Comment 1.1, Activated Partial Thromboplast Time 37H, Sodium Level 138, Potassium Level 4.1, Chloride Level 102, Carbon Dioxide Level 21, Anion Gap 15H, Blood Urea Nitrogen 12, Creatinine 0.91, Estimat Glomerular Filtration Rate 94, BUN/Creatinine Ratio 13, Glucose Level 162H, Calcium Level 10.0, Corrected Calcium 10.0, Total Bilirubin 1.7H, Aspartate Amino Transf (AST/SGOT) 42H, Alanine Aminotransferase (ALT/SGPT) 36, Alkaline Phosphatase 71, Total Protein 8.2, Albumin 4.0 11/03/21 15:22: Lactic Acid Level 1.77 Assessment/Plan Assessment/Plan Admission Dx Right orchitis Assessment & Plan Right orchitis -Failed outpatient antibiotic treatment with Rocephin and doxycycline -Urology consulted -Scrotal U/S pending -Cefepime and Vanc started -Dilaudid for pain management -Chlamydia and Gonorrhea ordered Diabetes -SSI Recent hx of spinal surgery with opioid use DVT prophylaxis with SCDs Diet- Regular CALOS SIBLEY MED STUDENT November 03, 2021 17:08
--- NOTE | 2021-11-03 17:18 | History & Physical ---
CALOS SIBLEY A MED STUDENT 11/03/21 1718: History of Present Illness History of Present Illness Reason for visit/HPI 66 yo male with a past medical hx of diabetes and recent spinal surgery presented for right testicular swelling. Pt reports a week and a half ago he had burning with urination in the morning that improve throughout the day. Then on Wednesday he noticed right testicular swelling and pain. Pt states he came to the ED and was given Rocephin and Doxycycline which he was compliant with taking. Pt was also prescribed opioid pain medication for a recent spinal surgery that he was taking for the pain. Pt reports the testicular swelling and pain worsened so he reported back to the ED today. Pt states he has had some nausea and constipation since starting the opioids. Pt reports having a fever of 101 yesterday, but this morning it was 96. Pt denies SOA, chest pain, palpitations, dysuria, urinary frequency, back pain or LE edema. Date of Admission November 03, 2021 at 16:21 Date Seen by a Provider: November 03, 2021 Time Seen by a Provider: 17:00 I consulted on this patient on 11/03/21 17:16 Attending Physician Primo Lewis MD Admitting Physician Braydon Perez MD Consult Allergies and Home Medications Allergies Coded Allergies: morphine (Verified Allergy, Unknown, HIVES, 11/03/21) Patient Home Medication List Doxycycline Hyclate (Doxycycline Hyclate) 100 Mg Tablet, 100 MG PO BID Prescribed by: LITZY CAO on 10/31/212215 Hydrocodone/Acetaminophen (Hydrocodone-Acetamin 5-325 mg) 1 Each Tablet, 1 TAB PO Q6H PRN for PAIN-MODERATE (5-7) Prescribed by: LITZY CAO on 09/30/202119 Ondansetron (Ondansetron Odt) 4 Mg Tab.rapdis, 4 MG PO Q6H PRN for NAUSEA/VOMITING Prescribed by: LITZY CAO on 10/31/212215 Oxycodone HCl/Acetaminophen (Percocet 5-325 mg Tablet) 5 Mg-325 Mg Tablet, 1-2 TAB PO Q4H PRN for PAIN-MODERATE Prescribed by: LITZY CAO on 10/31/212215 Past Qrtdtsw-Vhsbzk-Grwesf Hx Patient Social History Tobacco Use?: No Use of E-Cig and/or Vaping dev: No Substance use?: Yes Substance type: Marijuana Substance frequency: Several times a month Alcohol Use?: No Pt feels they are or have been: No Immunizations Up To Date Tetanus Booster (TDap): Unknown Seasonal Allergies Seasonal Allergies: No Current Status Communicates: Verbally Primary Language: French Preferred Spoken Language: French Past Medical History Surgeries: Orthopedic Diabetes, Non-Insulin dep Review of Systems Constitutional: No chills, No fever EENTM: No hearing loss, No vision loss Respiratory: cough; No dyspnea on exertion Cardiovascular: No chest pain, No palpitations Gastrointestinal: No abdominal pain; constipation; No diarrhea Genitourinary: No decreased output, No dysuria, No frequency; pain (scrotal pain) Musculoskeletal: No back pain, No joint swelling Skin: No change in color, No change in hair/nails Psychiatric/Neurological: Denies Anxiety, Denies Depressed Physical Exam Vital Signs Vital Signs - First Documented 11/03/21 15:00 Temp 36.8 Pulse 89 Resp 20 B/P (MAP) 127/77 (94) Capillary Refill : Height, Weight, BMI Height: '" Weight: lbs. oz. kg; 34.00 BMI Method: General Appearance: No Apparent Distress, WD/WN HEENT: PERRL/EOMI, TMs Normal Neck: Full Range of Motion, Normal Inspection Respiratory: Chest Non Tender, Lungs Clear, Normal Breath Sounds, No Accessory Muscle Use, No Respiratory Distress Cardiovascular: Regular Rate, Rhythm, No Edema, No Murmur Gastrointestinal: Normal Bowel Sounds, No Organomegaly, No Pulsatile Mass, Non Tender Rectal: Deferred Genital/Rectal: Other (right scrotum is erythematous and edematous) Extremity: Normal Capillary Refill, Normal Inspection, No Pedal Edema Neurologic/Psychiatric: Alert, Oriented x3, No Motor/Sensory Deficits, Normal Mood/Affect, instructor pilot II-XII Norm as Tested Skin: Erythema (right scrotum) Lymphatic: No Adenopathy Assessment/Plan Assessment and Plan Right orchitis -Failed outpatient antibiotic treatment with Rocephin and doxycycline -Urology consulted -Scrotal U/S pending -Cefepime and Vanc started -Dilaudid for pain management -Chlamydia and Gonorrhea ordered Diabetes -SSI Recent hx of spinal surgery with opioid use DVT prophylaxis with SCDs Diet- Regular Admission Diagnosis Admission Status: Inpatient Order (span 2 midnights) GAULT,PRIMO R MD 11/03/21 1805: Allergies and Home Medications Allergies Coded Allergies: morphine (Verified Allergy, Unknown, HIVES, 11/03/21) Patient Home Medication List Home Medication List Reviewed: Yes Doxycycline Hyclate (Doxycycline Hyclate) 100 Mg Tablet, 100 MG PO BID Prescribed by: LITZY CAO on 10/31/212215 Hydrocodone/Acetaminophen (Hydrocodone-Acetamin 5-325 mg) 1 Each Tablet, 1 TAB PO Q6H PRN for PAIN-MODERATE (5-7) Prescribed by: LITZY CAO on 09/30/202119 Ondansetron (Ondansetron Odt) 4 Mg Tab.rapdis, 4 MG PO Q6H PRN for NAUSEA/VOMITING Prescribed by: LITZY CAO on 10/31/212215 Oxycodone HCl/Acetaminophen (Percocet 5-325 mg Tablet) 5 Mg-325 Mg Tablet, 1-2 TAB PO Q4H PRN for PAIN-MODERATE Prescribed by: LITZY CAO on 10/31/212215 Past Kkltehb-Oddokw-Bkrjlm Hx Past Medical History Surgeries: Orthopedic (Spine surgery) Diabetes, Non-Insulin dep Physical Exam General Appearance: No Apparent Distress, WD/WN, Obese Respiratory: Chest Non Tender, Lungs Clear, Normal Breath Sounds Cardiovascular: Regular Rate, Rhythm, No Edema, No Murmur Gastrointestinal: Normal Bowel Sounds, Non Tender, Soft Genital/Rectal: Other (right scrotum is erythematous and edematous, moderate ttp) Back: No CVA Tenderness Extremity: Normal Capillary Refill, Normal Inspection, No Pedal Edema Neurologic/Psychiatric: Alert, Oriented x3, No Motor/Sensory Deficits, Normal Mood/Affect, instructor pilot II-XII Norm as Tested Skin: Erythema (right scrotum) Lymphatic: No Adenopathy Supervisory-Addendum Brief Verification & Attestation Participated in pt care: history, physical Personally performed: exam, history Care discussed with: Medical Student Procedures: n/a Verification and Attestation of Medical Student E/M Service A medical student performed and documented this service in my presence. I reviewed and verified all information documented by the medical student and made modifications to such information, when appropriate. I personally performed the physical exam and medical decision making. Primo Lewis, November 03, 2021,18:03 Right Testicular Pain Right Orcitis: IV antibiotics, monitor for improvement, failed outpatient treatment, GC/Chyl pending Right epididimytsis NIDDM: A1c pending, SSI Elevated bilirubin: Abdominal US pending Obesity CAOLS SIBLEY MED STUDENT November 03, 2021 17:18 PRIMO LEWIS MD November 03, 2021 18:05
[2021-11-03 17:22] LABS: BILIRUBIN,URINE NEGATIVE (NEGATIVE); CLARITY,URINE SL CLOUDY; COLOR,URINE YELLOW; GLUCOSE, URINE (UA) NEGATIVE (NEGATIVE); KETONES,URINE TRACE (NEGATIVE); LEUKOCYTE ESTERASE ,URINE 2+ (NEGATIVE); NITRITE,URINE NEGATIVE (NEGATIVE); PH,URINE 5.5 (5-9); PROTEIN,URINE NEGATIVE (NEGATIVE)
[2021-11-03 17:27] VITALS: BP 148/94
[2021-11-03 17:28] LABS: BACTERIA,URINE NEGATIVE /HPF
[2021-11-03] MEDS ORDERED: VANCOMYCIN INJECTION 0.1 MG in NS (IVPB) 250 ML IV SCH (17:30)
[2021-11-03] MEDS: NS IV 1000 ML 1,000 ML IV SCH (17:54)
[2021-11-03] MEDS: ENOXAPARIN 40 MG/0.4 ML (LOVENOX) SYR SC SCH (18:06)
[2021-11-03] MEDS ORDERED: VANCOMYCIN 1 GM/NS 250 ML IVPB IV NR ×2 (18:30)
[2021-11-03] MEDS: polyethylene glycoL POWDER 17 GM (MIRALAX) PACK PO SCH (18:48)
[2021-11-03 19:48] VITALS: BP 133/82
[2021-11-03] MEDS: DOCUSATE SODIUM 100 MG (COLACE) CAP PO SCH (21:25)
[2021-11-03] MEDS: CEFEPIME INJECTION 1,000 MG in NS (IVPB) 50 ML IV SCH (22:31)
[2021-11-04] VITALS: BP 105/70
[2021-11-04] MEDS: HYDROmorphone 2 MG/ML VIAL (DILAUDID) IV PRN ×3 (00:48→11:29)
[2021-11-04] MEDS: CEFEPIME INJECTION 1,000 MG in NS (IVPB) 50 ML IV SCH ×4 (04:09→22:38)
[2021-11-04] MEDS: NS IV 1000 ML 1,000 ML IV SCH ×3 (04:14→16:11)
[2021-11-04 04:15] VITALS: BP 129/83
[2021-11-04 05:31] LABS: BASOPHILS # (AUTO) 0.1 10^3/uL (0.0-0.1); BASOPHILS % (AUTO) 1 % (0-10); EOSINOPHILS # (AUTO) 0.3 10^3/uL (0.0-0.3); EOSINOPHILS % (AUTO) 4 % (0-10); HEMATOCRIT 38 % (40-54); HEMOGLOBIN 12.2 g/dL (13.3-17.7); LYMPHOCYTES # (AUTO) 1.5 10^3/uL (1.0-4.0); LYMPHOCYTES % (AUTO) 18 % (12-44); MEAN CORPUSCULAR HEMOGLOBIN 29 pg (25-34); MEAN CORPUSCULAR HGB CONC 32 g/dL (32-36); MEAN CORPUSCULAR VOLUME 91 fL (80-99); MEAN PLATELET VOLUME 10.9 fL (9.0-12.2); MONOCYTES # (AUTO) 0.8 10^3/uL (0.0-1.0); MONOCYTES % (AUTO) 9 % (0-12); NEUTROPHILS # (AUTO) 5.8 10^3/uL (1.8-7.8); NEUTROPHILS % (AUTO) 69 % (42-75); PLATELET COUNT 264 10^3/uL (130-400); WHITE BLOOD COUNT 8.5 10^3/uL (4.3-11.0)
[2021-11-04] MEDS: VANCOMYCIN 1,750 MG/NS 500 ML IVPB IV SCH ×4 (05:50→18:34)
[2021-11-04 05:57] LABS: ALBUMIN 3.5 GM/DL (3.2-4.5)
[2021-11-04 05:58] LABS: CALCIUM 8.8 MG/DL (8.5-10.1)
[2021-11-04 05:59] LABS: TOTAL PROTEIN 6.8 GM/DL (6.4-8.2)
[2021-11-04 06:01] LABS: BILIRUBIN,TOTAL 1.9 MG/DL (0.1-1.0)
[2021-11-04 06:03] LABS: CREATININE SERUM 0.81 MG/DL (0.60-1.30)
[2021-11-04 07:52] VITALS: BP 120/73
--- NOTE | 2021-11-04 08:43 | Progress Note ---
CALOS SIBLEY A MED STUDENT 11/04/21 0843: Subjective Subjective/Events-last exam Pt up in bed this morning reports he is feeling much better today. Pt states the swelling in his right scrotum has decreased, but he still has pain that is about the same as yesterday. Pt reports last BM was Wednesday morning, but he hasn't ate much since then. Pt does report his appetite is increasing and he ate breakfast this morning. Pt denies fever, chills, SOA, chest pain, palpitations, dysuria, urinary frequency or N/V/D. Review of Systems General: No Chills, No Fatigue HEENT: No Head Aches, No Visual Changes Pulmonary: No Dyspnea; Cough Cardiovascular: No: Chest Pain, Palpitations Gastrointestinal: Constipation; No: Nausea, Vomiting, Abdominal Pain, Diarrhea Genitourinary: No Dysuria, No Frequency Musculoskeletal: No: neck pain Neurological: No: Weakness, Numbness Focused Exam Lactate Level 11/03/21 15:22: Lactic Acid Level 1.77 Objective Exam Last Set of Vital Signs Vital Signs Date Time Temp Pulse Resp B/P (MAP) Pulse Ox O2 Delivery O2 Flow Rate FiO2 11/04/21 08:30 Room Air 11/04/21 07:52 36.9 73 18 120/73 (89) 96 Capillary Refill : I&O Intake and Output 11/04/21 00:00 Intake Total 2850 ml Output Total 300 ml Balance 2550 ml Intake Oral 500 ml IV Total 2350 ml Output Urine Total 300 ml # Voids 4 Daily Weight Change No General: Alert, Oriented X3 HEENT: Atraumatic, PERRLA Neck: No Thyromegaly, No LAD Lungs: Clear to Auscultation, Normal Air Movement Heart: Regular Rate, Normal S1, Normal S2 Abdomen: Normal Bowel Sounds, Soft, No Tenderness Skin: Other (right scrotal edema and erythema improved from yesterday) Neuro: Normal Speech, Normal Tone, Sensation Intact Psych/Mental Status: Mental Status NL, Mood NL Results/Procedures Lab Laboratory Tests 11/03/21 15:00: White Blood Count 12.2H, Red Blood Count 4.63, Hemoglobin 13.6, Hematocrit 41, Mean Corpuscular Volume 89, Mean Corpuscular Hemoglobin 29, Mean Corpuscular Hemoglobin Concent 33, Red Cell Distribution Width 13.5, Platelet Count 289, Mean Platelet Volume 10.8, Immature Granulocyte % (Auto) 0, Neutrophils (%) (Auto) 74, Lymphocytes (%) (Auto) 15, Monocytes (%) (Auto) 8, Eosinophils (%) (Auto) 3, Basophils (%) (Auto) 0, Neutrophils # (Auto) 9.1H, Lymphocytes # (Auto) 1.9, Monocytes # (Auto) 0.9, Eosinophils # (Auto) 0.3, Basophils # (Auto) 0.0, Immature Granulocyte # (Auto) 0.0, Prothrombin Time 14.7, INR Comment 1.1, Activated Partial Thromboplast Time 37H, Sodium Level 138, Potassium Level 4.1, Chloride Level 102, Carbon Dioxide Level 21, Anion Gap 15H, Blood Urea Nitrogen 12, Creatinine 0.91, Estimat Glomerular Filtration Rate 94, BUN/Creatinine Ratio 13, Glucose Level 162H, Calcium Level 10.0, Corrected Calcium 10.0, Total B ilirubin 1.7H, Aspartate Amino Transf (AST/SGOT) 42H, Alanine Aminotransferase (ALT/SGPT) 36, Alkaline Phosphatase 71, Total Protein 8.2, Albumin 4.0 11/03/21 15:10: 11/03/21 15:22: Lactic Acid Level 1.77 11/03/21 17:14: Urine Color YELLOW, Urine Clarity SL CLOUDY, Urine pH 5.5, Urine Specific [place] 1.025H, Urine Protein NEGATIVE, Urine Glucose (UA) NEGATIVE, Urine Ketones TRACEH, Urine Nitrite NEGATIVE, Urine Bilirubin NEGATIVE, Urine Urobilinogen 0.2, Urine Leukocyte Esterase 2+H, Urine RBC (Auto) NEGATIVE, Urine RBC NONE, Urine WBC 10-25H, Urine Squamous Epithelial Cells NONE, Urine Crystals NONE, Urine Bacteria NEGATIVE, Urine Casts NONE, Urine Mucus NEGATIVE, Urine Culture Indicated YES 11/04/21 05:20: White Blood Count 8.5, Red Blood Count 4.16L, Hemoglobin 12.2L, Hematocrit 38L, Mean Corpuscular Volume 91, Mean Corpuscular Hemoglobin 29, Mean Corpuscular Hemoglobin Concent 32, Red Cell Distribution Width 13.6, Platelet Count 264, Mean Platelet Volume 10.9, Immature Granulocyte % (Auto) 1, Neutrophils (%) (Auto) 69, Lymphocytes (%) (Auto) 18, Monocytes (%) (Auto) 9, Eosinophils (%) (Auto) 4, Basophils (%) (Auto) 1, Neutrophils # (Auto) 5.8, Lymphocytes # (Auto) 1.5, Monocytes # (Auto) 0.8, Eosinophils # (Auto) 0.3, Basophils # (Auto) 0.1, Immature Granulocyte # (Auto) 0.0, Sodium Level 139, Potassium Level 4.0, Chloride Level 108H, Carbon Dioxide Level 19L, Anion Gap 12, Blood Urea Nitrogen 9, Creatinine 0.81, Estimat Glomerular Filtration Rate 98, BUN/Creatinine Ratio 11, Glucose Level 142H, Calcium Level 8.8, Corrected Calcium 9.2, Total Bilirubin 1.9H, Aspartate Amino Transf (AST/SGOT) 32, Alanine Aminotransferase (ALT/SGPT) 33, Alkaline Phosphatase 55, Total Protein 6.8, Albumin 3.5 Assessment/Plan Assessment/Plan Assessment & Plan Right orchitis -Failed outpatient antibiotic treatment with Rocephin and doxycycline -Urology consulted -Scrotal U/S showed orchitis -Continue cefepime -Stop vancomycin -Dilaudid for pain management -Chlamydia and Gonorrhea pending Diabetes -SSI Recent hx of spinal surgery with opioid use DVT prophylaxis with SCDs Diet- Regular Clinical Quality Measures Admission Status Admission Dx Right orchitis -Failed outpatient antibiotic treatment with Rocephin and doxycycline -Urology consulted -Scrotal U/S pending -Cefepime and Vanc started -Dilaudid for pain management -Chlamydia and Gonorrhea ordered Diabetes -SSI Recent hx of spinal surgery with opioid use DVT prophylaxis with SCDs Diet- Regular PRIMO ASIF MD 11/04/212034: Objective Exam General: Alert, Oriented X3 Lungs: Clear to Auscultation, Normal Air Movement Heart: Regular Rate, No Murmurs Abdomen: Normal Bowel Sounds, Soft, No Tenderness Other physical findings Right testicle with swelling and erythema (improvement from yesterday) Assessment/Plan Supervisory Addendum Verification and Attestation of Medical Student E/M Service A medical student performed and documented this service in my presence. I reviewed and verified all information documented by the medical student and made modifications to such information, when appropriate. I personally performed the physical exam and medical decision making. Primo Asif, November 04, 2021,20:34 Improvement since yesterday, will do 1 more day of IV antibiotics and then possible d/c Liver US revealed diffuse fatty infiltration, would recommend further outpatient workup CALOS SIBLEY MED STUDENT November 04, 2021 08:43 PRIMO ASIF MD November 04, 2021 20:35
[2021-11-04] MEDS: polyethylene glycoL POWDER 17 GM (MIRALAX) PACK PO SCH (08:48)
[2021-11-04] MEDS: DOCUSATE SODIUM 100 MG (COLACE) CAP PO SCH ×2 (08:48→22:38)
[2021-11-04] MEDS ORDERED: OXYC5TAB PO (10:34)
[2021-11-04] MEDS ORDERED: DOXY100T2 PO (10:34)
[2021-11-04] MEDS ORDERED: METF-397 PO (10:34)
[2021-11-04] MEDS ORDERED: MULT-1136 PO (10:34)
[2021-11-04 11:16] VITALS: BP 110/70
--- NOTE | 2021-11-04 16:02 | Diagnostic Imaging Report ---
INDICATION: Elevated bilirubin. TECHNIQUE: Ultrasound of the liver and right upper quadrant was performed in the routine fashion. FINDINGS: The liver shows diffuse increased echogenicity compatible with fatty infiltration, liver is somewhat poorly visualized but no definite focal lesion is seen. Portal vein is patent with hepatopetal flow. Gallbladder appears unremarkable with no dilatation or stones or wall thickening. Common bile duct could not be well visualized. Pancreas is obscured by overlying gas. Visualized portions of the aorta and IVC appear normal. Right kidney measured 10.5 cm in length and appears unremarkable. There is no ascites. IMPRESSION: Limited study due to body habitus and overlying bowel gas. There is diffuse fatty infiltration of the liver without focal lesion. Common bile duct was not well seen due to overlying gas. There was no other significant finding. Dictated by: Dictated on workstation # [id number]
[2021-11-04] MEDS: ENOXAPARIN 40 MG/0.4 ML (LOVENOX) SYR SC SCH (16:11)
[2021-11-04 16:15] VITALS: BP 116/77
[2021-11-04 20:10] VITALS: BP 122/71
[2021-11-05 00:12] VITALS: BP 110/74
[2021-11-05] MEDS: NS IV 1000 ML 1,000 ML IV SCH ×2 (03:29→09:45)
[2021-11-05 04:22] VITALS: BP 105/71
[2021-11-05] MEDS: CEFEPIME INJECTION 1,000 MG in NS (IVPB) 50 ML IV SCH ×2 (05:16→10:33)
[2021-11-05] MEDS ORDERED: TROUGH ORDER-PHARMACY XX NR (05:30)
[2021-11-05 05:50] LABS: BASOPHILS # (AUTO) 0.1 10^3/uL (0.0-0.1); BASOPHILS % (AUTO) 1 % (0-10); EOSINOPHILS # (AUTO) 0.3 10^3/uL (0.0-0.3); EOSINOPHILS % (AUTO) 4 % (0-10); HEMATOCRIT 39 % (40-54); HEMOGLOBIN 12.6 g/dL (13.3-17.7); LYMPHOCYTES # (AUTO) 1.4 10^3/uL (1.0-4.0); LYMPHOCYTES % (AUTO) 19 % (12-44); MEAN CORPUSCULAR HEMOGLOBIN 29 pg (25-34); MEAN CORPUSCULAR HGB CONC 33 g/dL (32-36); MEAN CORPUSCULAR VOLUME 90 fL (80-99); MEAN PLATELET VOLUME 10.4 fL (9.0-12.2); MONOCYTES # (AUTO) 0.6 10^3/uL (0.0-1.0); MONOCYTES % (AUTO) 8 % (0-12); NEUTROPHILS # (AUTO) 4.9 10^3/uL (1.8-7.8); NEUTROPHILS % (AUTO) 68 % (42-75); PLATELET COUNT 290 10^3/uL (130-400); WHITE BLOOD COUNT 7.3 10^3/uL (4.3-11.0)
[2021-11-05 06:07] LABS: POTASSIUM 4.2 MMOL/L (3.6-5.0)
[2021-11-05 06:09] LABS: CALCIUM 9.2 MG/DL (8.5-10.1)
[2021-11-05 06:13] LABS: CREATININE SERUM 0.79 MG/DL (0.60-1.30)
[2021-11-05 06:21] LABS: VANCOMYCIN,TROUGH 16.4 UG/ML (10.0-20.0)
[2021-11-05] MEDS: VANCOMYCIN 1,750 MG/NS 500 ML IVPB IV SCH ×2 (06:39)
[2021-11-05 08:28] VITALS: BP 135/73
[2021-11-05] MEDS: DOCUSATE SODIUM 100 MG (COLACE) CAP PO SCH (09:45)
[2021-11-05] MEDS: polyethylene glycoL POWDER 17 GM (MIRALAX) PACK PO SCH (09:45)
--- NOTE | 2021-11-05 10:06 | Discharge Summary ---
Diagnosis/Chief Complaint Date of Admission November 03, 2021 at 16:21 Date of Discharge Discharge Date: November 05, 2021 Admission Diagnosis Admission Diagnosis Right orchitis Discharge Diagnosis Right orchitis Reason Hospital Visit 66 yo male with a past medical hx of diabetes and recent spinal surgery presented for right testicular swelling. Pt reports a week and a half ago he had burning with urination in the morning that improve throughout the day. Then on Wednesday he noticed right testicular swelling and pain. Pt states he came to the ED and was given Rocephin and Doxycycline which he was compliant with taking. Pt was also prescribed opioid pain medication for a recent spinal surgery that he was taking for the pain. Pt reports the testicular swelling and pain worsened so he reported back to the ED today. Pt states he has had some nausea and constipation since starting the opioids. Pt reports having a fever of 101 yesterday, but this morning it was 96. Pt denies SOA, chest pain, palpitations, dysuria, urinary frequency, back pain or LE edema. Discharge Summary Hospital Course Hospital Course 66 yo male with a past medical hx of diabetes and recent spinal surgery presented for right testicular swelling. Pt reported a week and a half ago he had burning with urination in the morning that improve throughout the day. Then on Wednesday he noticed right testicular swelling and pain. Pt states he came to the ED and was given Rocephin and Doxycycline which he was compliant with taking. Pt was also prescribed opioid pain medication for a recent spinal surgery that he was taking for the pain. Pt reported the testicular swelling and pain worsened so he reported back to the ED. Pt was admitted as inpatient and and started on Vancomycin and Cefepime. Urine culture revealed no growth. Pt had elevated LFTs, so abominal U/S was done and pt was found to have fatty liver. Pt's scrotal swelling and erythema improved over the course of two days and it was determined he was stable for discharge. Pt sent home with cefdinir. Labs Laboratory Tests 11/03/21 15:00: White Blood Count 12.2H, Neutrophils # (Auto) 9.1H, Activated Partial Thromboplast Time 37H, Anion Gap 15H, Glucose Level 162H, Total Bilirubin 1.7H, Aspartate Amino Transf (AST/SGOT) 42H 11/03/21 15:10: Mean Blood Glucose 146H, Hemoglobin A1c 6.7H 11/03/21 15:22: 11/03/21 17:14: Urine Specific [place] 1.025H, Urine Ketones TRACEH, Urine Leukocyte Esterase 2+H, Urine WBC 10-25H 11/04/21 05:20: Red Blood Count 4.16L, Hemoglobin 12.2L, Hematocrit 38L, Chloride Level 108H, Carbon Dioxide Level 19L, Glucose Level 142H, Total Bilirubin 1.9H 11/05/21 05:30: Hemoglobin 12.6L, Hematocrit 39L, Chloride Level 108H, Carbon Dioxide Level 20L, Glucose Level 163H Procedures None. Discharge Physical Examination Allergies: Coded Allergies: acetaminophen (Verified Allergy, Unknown, Nausea, 11/04/21) morphine (Verified Allergy, Unknown, HIVES, 11/03/21) propoxyphene (Verified Allergy, Unknown, 11/04/21) Vitals & I&Os Vital Signs Date Time Temp Pulse Resp B/P (MAP) Pulse Ox O2 Delivery O2 Flow Rate FiO2 11/05/21 09:00 Room Air 11/05/21 08:28 36.9 69 19 135/73 (93) 96 General Appearance: Alert, Oriented X3 HEENT: Atraumatic, PERRLA Respiratory: Clear to Auscultation, Normal Air Movement Cardiovascular: Regular Rate, Normal S1, Normal S2 Abdominal: Normal Bowel Sounds, Soft, No Tenderness Extremities: No Edema, Normal Pulses Skin: No Rashes, No Breakdown, Other (right scrotal erythema and edema, improved) Neuro: Normal Gait, Normal Speech Psych/Mental Status: Mood NL Discharge Home Medications Reviewed and agree with Discharge Medication list on patient's Discharge Instruction sheet Instructions to Patient/Family Please see electronic discharge instructions given to patient. CALOS SIBLEY MED STUDENT November 05, 2021 10:06
--- NOTE | 2021-11-05 11:19 | CONSULTATION REPORT ---
DATE OF SERVICE: 11/04/2021 ATTENDING PHYSICIAN: Dr. Robison. SUMMARY: After reviewing the patient's record, interviewing him and examining him, this is a 66-year-old white man who was seen 2-3 days prior to his admission with right epididymitis. He was referred to the office for followup; however, he claims that the day of his admission increase pain and swelling. He was seen at the emergency room for which he was admitted because of increased epididymo-orchitis on the right side and he was developing abscess. Ultrasound revealed increasing orchitis but no evidence of abscess. On physical exam, he does have an obvious epididymo-orchitis on right side. Left side is normal. IMPRESSION: Acute right epididymo-orchitis. PLAN: Continue present management with scrotal support, vancomycin along with Cefepim and he said that he is better on these antibiotics, however, he is scheduled to get an abdominal ultrasound to check on his gallbladder. I will follow with you. Job ID: [id number] DocumentID: [id number] Dictated Date: 11/04/2021 13:51:07 Breaker Tender Date: 11/04/2021 14:03:38 Dictated By: KAVYA DOWNEY MD MTDD
[2021-11-05 11:39] VITALS: BP 141/67
[2021-11-05] MEDS ORDERED: CIPR500S2 PO (12:03)
--- NOTE | 2021-11-05 12:05 | Discharge Summary ---
Discharge [facility] Reconcile Patient Problems Problems Reviewed?: Yes Discharge Medications New, Converted or Re-Newed RX: Transmitted to Pharmacy New Medications: Ciprofloxacin (Cipro) 500 Mg/5 Ml Colleen.mc.rec 500 MG PO BID for 10 Days, #20 TAB Continued Medications: Doxycycline Hyclate (Doxycycline Hyclate) 100 Mg Tablet 100 MG PO BID, TAB FILLED 11-01-2021 #20/10 DAY SUPPLY Metformin HCl (Metformin HCl) 500 Mg Tablet 500 MG PO BID, TAB Multivitamin (Multivitamin) 1 Each Tablet 1 EACH PO DAILY, TAB Oxycodone HCl (Oxycodone HCl) 5 Mg Tablet 5-10 MG PO Q6H PRN for PAIN-SEVERE (8-10), TAB Patient Instructions Goal/Follow Up Appt: F.u with PCP in 1-2 weeks Patient Instructions: - Continue your doxycycline and add cipro and be sure to complete your antibiotics Activity & Diet Discharge Diet: ADA Diet Activity as Tolerated: Yes Copy Copies To 1: ABEL MATHUR MD, HOLLY R MD November 05, 2021 12:05
--- NOTE | 2021-11-05 12:29 | Progress Note - Urology ---
Progress Note-Urology Progress Notes/Assess & Plan Progress/Assessment & Plan DOING AND FEELING MUCH BETTER. HOME ON 2 ABX, REST, AND SCROTAL SUPPORT. SEE ME PRN Final Diagnosis RT EPIDIDYMOORCHITIS KAVYA DOWNEY MD November 05, 2021 12:29
[2021-11-05 14:10] VITALS: BP 141/67
--- NOTE | 2021-11-05 18:25 | Physician Query Clarification ---
Physician Query-General Query to Physician: Clinical Validation Clarification Dr Elza Asif Sepsis has been documented in the medical record. After study, has Sepsis been ruled out? If it has been ruled out, please document Sepsis ruled out" in the progress notes and/or discharge summary. 1. Yes, Sepsis ruled out/not clinically valid 2. No, Sepsis has not been ruled out/is clinically valid* *Please document the clinical evidence supportive of this diagnosis (even if now resolved) in the Progress Notes and Discharge Summary 3. Other, with explanation of the clinical findings 4. Clinically undetermined, no explanation for the clinical findings Additional information: DM, with Orchitis/Epididymoorchitis Admission labs/VS: HR 89, RR 20, BP 127/77, SpO2 98% sat on room air, T 36.8, WBC 12.2, Lactic acid 1.77, BC X 2 No Growth, Treatment in ER: Normal saline 2 L, vancomycin IV, cefepime IV, In responding to this query, please exercise your independent professional judgment. The purpose of this communication is to more accurately reflect the complexity of your patients condition. The fact that a question is asked does not imply that any particular answer is desired or expected. Thank you for your timely response to this clarification. Filomena Ann MSN, RN Clinical Surg Physician Asst [email or web address] PHYSICIAN RESPONSE: Based on the clinical findings in the record, please respond to the query above on this document as an addendum. Physician Response: Physician Response Yes patient was not septic If you have questions please contact: Environmental Restoration Planner: Ext: Thank you for your time and cooperation. Clinical Surg Physician Asst/Environmental Restoration Planner This is a permanent part of the medical record FILOMENA ANN November 05, 2021 18:25 PRIMO ASIF MD November 20, 2021 10:19
== END 2021-11-05 14:10 | disposition home or self-care (01) | DRG 728 ==
LOC: EDUNIT# 14:50 → ER 14:51 → 4TH 16:21
PROVIDERS: ADMIT Family Medicine; ATTEND Family Medicine
DX: N45.3 Epididymo-orchitis (principal); G89.29 Other chronic pain; M54.9 Dorsalgia, unspecified; E11.9 Type 2 diabetes mellitus without complications; E66.9 Obesity, unspecified; Z68.34 Body mass index [BMI] 34.0-34.9, adult
CPT/HCPCS: 36415; 76705; 76870; 80048; 80053; 80202; 81000; 83036; 83605; 85025; 85610; 85730; 86780; 87040; 87088; 87491; 87591; 96361; 96365; 96375

== ENCOUNTER → 2022-10-06 | Outpatient (CLI) | payer MEDICARE ==
[~2022-10-06] MED LIST changes: +CIPR500S2 PO; +METF-397 PO; +MULT-1136 PO; +OXYC5TAB PO
[2022-10-06 07:21] LABS: BASOPHILS % (AUTO) 1 % (0-10); EOSINOPHILS # (AUTO) 0.2 10^3/uL (0.0-0.3); EOSINOPHILS % (AUTO) 3 % (0-10); HEMATOCRIT 44 % (40-54); HEMOGLOBIN 14.8 g/dL (13.3-17.7); LYMPHOCYTES # (AUTO) 1.7 10^3/uL (1.0-4.0); LYMPHOCYTES % (AUTO) 25 % (12-44); MEAN CORPUSCULAR HEMOGLOBIN 30 pg (25-34); MEAN CORPUSCULAR HGB CONC 34 g/dL (32-36); MEAN CORPUSCULAR VOLUME 89 fL (80-99); MEAN PLATELET VOLUME 10.5 fL (9.0-12.2); MONOCYTES # (AUTO) 0.5 10^3/uL (0.0-1.0); MONOCYTES % (AUTO) 7 % (0-12); NEUTROPHILS # (AUTO) 4.4 10^3/uL (1.8-7.8); NEUTROPHILS % (AUTO) 65 % (42-75); PLATELET COUNT 253 10^3/uL (130-400); WHITE BLOOD COUNT 6.9 10^3/uL (4.3-11.0)
[2022-10-06 07:40] LABS: ALBUMIN 4.3 GM/DL (3.2-4.5); BILIRUBIN,TOTAL 1.1 MG/DL (0.1-1.0); CALCIUM 9.2 MG/DL (8.5-10.1); CREATININE SERUM 1.14 MG/DL (0.60-1.30); POTASSIUM 4.3 MMOL/L (3.6-5.0); TOTAL PROTEIN 7.6 GM/DL (6.4-8.2)
== END ==
LOC: LAB 07:03
PROVIDERS: ATTEND Family Medicine
DX: E11.65 Type 2 diabetes mellitus with hyperglycemia (principal); E55.9 Vitamin D deficiency, unspecified
CPT/HCPCS: 36415; 80053; 80061; 82306; 83036; 85025

== ENCOUNTER → 2022-10-15 | Outpatient (CLI) | payer MEDICARE ==
--- NOTE | 2022-10-15 10:34 | Diagnostic Imaging Report ---
INDICATION: Neck pain. FINDINGS: The alignment is normal. There is mild degenerative disc disease at C4-C5 and moderate degenerative disease at C5-C6 and C6-C7. This includes some disc space narrowing and marginal osteophytosis. There is no fracture or traumatic subluxation. The odontoid is intact and lateral masses are well aligned. Prevertebral soft tissues are within normal limits. IMPRESSION: Moderate cervical spondylosis and degenerative disc disease as described. Dictated by: Dictated on workstation # [id number]
== END ==
LOC: RAD 08:38
PROVIDERS: ATTEND Family Medicine
DX: M47.812 Spondylosis without myelopathy or radiculopathy, cervical region (principal); M50.30 Other cervical disc degeneration, unspecified cervical region
CPT/HCPCS: 72040

== ENCOUNTER 2023-01-04 08:48 | Emergency (ER) | payer MEDICARE ==
[2023-01-04] MEDS ORDERED: ORPHENADRINE 60 MG/2 ML (NORFLEX) AMP (ED ONLY) IV ONE (10:00)
[2023-01-04] MEDS ORDERED: KETOROLAC 30 MG/ML VIAL IVP ONE (10:00)
--- NOTE | 2023-01-04 10:38 | ED General ---
General Chief Complaint: Hip/Pelvic Problems Stated Complaint: RT HIP AND RT LEG PAIN Nursing Triage Note: PT TO RM 8 BY WC WITH C/O R HIP AND R LEG PAIN THAT STARTED WEDNESDAY. PT DENIES INJURY Source of Information: Patient Exam Limitations: No Limitations History of Present Illness Date Seen by Provider: Jan 04, 2023 Time Seen by Provider: 09:27 Initial Comments This 67-year-old gentleman presents to the emergency room with complaints of pain in the right hip and buttock region radiating down to the right bro. Pain is constant and worse with weightbearing. He additionally experiences some shooting pain and numbness with ambulation. He denies any prior episodes, but reports sciatic nerve problems on the left. He denies any recent or remote injuries. He has had prior lower lumbar surgery for spinal stenosis. Dr. Craven at [place] is his neurosurgeon. He has been taking ibuprofen without much benefit. His last dose was yesterday evening. He also used liquid THC and a vape last night. He ran out of his muscle relaxers, tizanidine, on Wednesday. Allergies and Home Medications Allergies Coded Allergies: Penicillins (Verified Allergy, Unknown, 01/04/23) morphine (Verified Allergy, Unknown, HIVES, 11/03/21) propoxyphene (Verified Allergy, Unknown, 11/04/21) Patient Home Medication List Home Medication List Reviewed: Yes Ciprofloxacin (Cipro) 500 Mg/5 Ml [facility]..rec, 500 MG PO BID Prescribed by: PRIMO LEWIS on 11/05/21 1203 Doxycycline Hyclate (Doxycycline Hyclate) 100 Mg Tablet, 100 MG PO BID, (Reported) Entered as Reported by: ABRAHAN MISTRY on 11/04/21 1034 Metformin HCl (Metformin HCl) 500 Mg Tablet, 500 MG PO BID, (Reported) Entered as Reported by: ABRAHAN MISTRY on 11/04/21 1034 Multivitamin (Multivitamin) 1 Each Tablet, 1 EACH PO DAILY, (Reported) Entered as Reported by: ABRAHAN MISTRY on 11/04/21 1034 Oxycodone HCl (Oxycodone HCl) 5 Mg Tablet, 5-10 MG PO Q6H PRN for PAIN-SEVERE (8-10), (Reported) Entered as Reported by: ABRAHAN MISTRY on 11/04/21 1034 Oxycodone HCl/Acetaminophen (Percocet 5-325 mg Tablet) 1 Each Tablet, 1 TAB PO Q4H PRN for PAIN-MODERATE (5-7) Prescribed by: EILEEN HARDY on 01/04/23 1219 Tizanidine HCl (Tizanidine HCl) 2 Mg Tablet, 2 MG PO HS PRN for SPASMS Prescribed by: EILEEN HARDY on 01/04/23 1218 Review of Systems Review of Systems Constitutional: no symptoms reported EENTM: no symptoms reported Respiratory: no symptoms reported Cardiovascular: no symptoms reported Gastrointestinal: no symptoms reported Genitourinary: no symptoms reported Musculoskeletal: see HPI Skin: no symptoms reported Psychiatric/Neurological: See HPI Hematologic/Lymphatic: No Symptoms Reported Immunological/Allergic: no symptoms reported Past Rvnrymc-Jjwfxd-Vbfgzc Hx Patient Social History Tobacco Use?: No Use of E-Cig and/or Vaping dev: No Substance use?: Yes Substance type: Marijuana Alcohol Use?: No Pt feels they are or have been: No Seasonal Allergies Seasonal Allergies: No Past Medical History Surgery/Hospitalization HX: DM BILAT SHOULDERS, BILAT KNEE REPLACEMENTS, BACK SURGERY, WRIST SURGERY Surgeries: Yes Orthopedic Respiratory: No Cardiac: No Neurological: No Genitourinary: No Gastrointestinal: No Musculoskeletal: Yes (ROTATOR CUFF REPLAIR & AC JOINT. BILAT KNEE REPLACEMENT ) Endocrine: Yes Diabetes, Non-Insulin dep HEENT: No Cancer: No Psychosocial: No Integumentary: No Physical Exam Vital Signs Vital Signs - First Documented 01/04/23 09:03 Temp 36.9 Pulse 64 Resp 17 B/P (MAP) 120/90 (100) Pulse Ox 97 O2 Delivery Room Air Capillary Refill : Height, Weight, BMI Height: '" Weight: lbs. oz. kg; 34.93 BMI Method: General Appearance: No Apparent Distress, WD/WN HEENT: Normal ENT Inspection Neck: Normal Inspection Respiratory: Lungs Clear, Normal Breath Sounds Cardiovascular: Regular Rate, Rhythm, No Murmur Back: Normal Inspection, No Vertebral Tenderness Extremity: Normal Inspection, Other (mild TTP near the superior aspect of the right buttocks. No significant pain with palpation or rotation of the hip joint.) Neurologic/Psychiatric: Alert, Oriented x3, No Motor/Sensory Deficits, Normal Mood/Affect Skin: Normal Color, Warm/Dry Progress/Results/Core Measures Suspected Sepsis SIRS Temperature: Pulse: 64 Respiratory Rate: 17 Blood Pressure 120 /90 Mean: 100 Results/Orders Lab Results My Orders Orders - EILEEN EUGENE MD Ed Iv/Invasive Line Start (01/04/23 09:57) Ketorolac Injection (Toradol Injection) (01/04/23 10:00) Orphenadrine Inj (Ed Only) (Norflex Inje (01/04/23 10:00) Tizanidine Tablet (Zanaflex Tablet) (01/04/23 10:15) Fentanyl Inj (Sublimaze Injection) (01/04/23 11:00) Oxycodone/Apap 5/325mg Tablet (Percocet (01/04/23 11:00) Hip, Right, 2 Views (01/04/23 11:00) Medications Given in ED Vital Signs/I&O 01/04/23 01/04/23 09:03 12:20 Temp 36.9 36.9 Pulse 64 62 Resp 17 17 B/P (MAP) 120/90 (100) 121/87 Pulse Ox 97 97 O2 Delivery Room Air Room Air Capillary Refill : Blood Pressure Mean: 100 Progress Note : Progress Note Patient was interviewed and examined. IV was established to dose medications. IV was used so that medications could be promptly redosed if needed. Labs could not be obtained from the IV and had initially been ordered to ensure electrol ytes and renal function were appropriate. Patient was initially treated with Toradol. Norflex was ordered but was on backorder and not available. Tizanidine was given as a substitute. Patient normally takes tizanidine at home but was out. These medications did not provide him with sufficient relief. Additional treatment with fentanyl and Percocet was offered. Patient was ramila ewhat argumentative about his pain control options. I offered several different options, none of which were satisfactory to him. He was under the impression that he could not take Tylenol with diabetes and that Tylenol in any amount would cause rapid injury to his internal organs in the context of diabetes. This is why he listed Tylenol as an allergy. He has not ever actually had a true allergic reaction to Tylenol. Tylenol was removed from his allergy list. I explained the nature of Tylenol and its safety when used properly. Patient then eventually did agree to treatment with Percocet. X-ray imaging was ordered and obtained. Radiologist report was reviewed. There were no significant abnormalities in the hip joint. I suspect his symptoms are more radicular in nature. I offered gabapentin or other neuropathic pain medications which she emphatically declined stating he was certain they would not work for him although he has never tried them personally. Ultimately, patient was discharged with improvement in pain and prescriptions listed below. Diagnostic Imaging Diagonstic Imaging: Xray Plain Films/CT/US/NM/MRI: hip Comments NAME: ERENDIRA [facility] REC#: [id number] PT STATUS: DEP ER : [id number] PHYSICIAN: EILEEN EUGENE MD ADMIT DATE: 01/04/23/ER Signed Date of Exam:01/04/23 HIP, RIGHT, 2 VIEWS INDICATION: Hip pain. TECHNIQUE: Two views were obtained. FINDINGS: The alignment is normal. There is no fracture or dislocation. Soft tissues are unremarkable. IMPRESSION: No acute fracture or dislocation. Dictated by: Dictated on workstation # [id number] Dict: 01/04/23 1159 Trans: 01/04/23 1640 [id number] Interpreted by: ASIA SWEENEY MD Electronically signed by: ASIA SWEENEY MD 01/04/23 1640 Departure Impression Primary Impression: Left hip pain Additional Impression: Lumbar radiculopathy Disposition: 01 HOME, SELF-CARE Condition: Improved Departure-Patient Inst. Decision time for Depature: 12:14 Referrals: WAQAS RIVER MD (PCP/Family) Primary Care Physician Patient Instructions: Radiculopathy Add. Discharge Instructions: Your pain is likely coming from an issue in your lower back or one of the nerve roots exiting the lower back. Use tizanidine (muscle relaxer) and Percocet (oxycodone/acetaminophen) as prescribed. These medications may cause drowsiness, so use with caution. Do not drive, make important decisions, or operate machinery while taking these medications. These medications may also cause constipation, so you may wish to use a stool softener such as Colace while on these medications. Drink plenty of clear liquids to stay well-hydrated. Follow-up with your primary care provider soon as possible and seek referral back to your spine surgeon. Return to the emergency room if you have worsening symptoms. In particular, return to the emergency room promptly if you develop problems controlling bowel or bladder, weakness in your legs, or numbness in your groin. All discharge instructions reviewed with patient and/or family. Voiced understanding. Scripts Oxycodone HCl/Acetaminophen (Percocet 5-325 mg Tablet) 1 Each Tablet 1 TAB PO Q4H PRN for PAIN-MODERATE (5-7) MDD 6 TABS, #10 TAB Prov: EILEEN EUGENE MD 01/04/23 Tizanidine HCl (Tizanidine HCl) 2 Mg Tablet 2 MG PO HS PRN for SPASMS, #10 TAB Prov: EILEEN EUGENE MD 01/04/23 Copy Copies To 1: WAQAS RIVER MD, JOSHUA T MD Jan 04, 2023 10:38
[2023-01-04] MEDS ORDERED: oxyCODONE/APAP 5/325MG (PERCOCET 5) TABLET PO ONE (11:00)
[2023-01-04] MEDS ORDERED: fentaNYL INJ 100 MCG/2 ML AMP IVP ONE (11:00)
--- NOTE | 2023-01-04 12:03 | Diagnostic Imaging Report ---
INDICATION: Hip pain. TECHNIQUE: Two views were obtained. FINDINGS: The alignment is normal. There is no fracture or dislocation. Soft tissues are unremarkable. IMPRESSION: No acute fracture or dislocation. Dictated by: Dictated on workstation # [id number]
[2023-01-04] MEDS ORDERED: TIZA-169 PO (12:18)
[2023-01-04] MEDS ORDERED: OXYC1TAB87 PO (12:18)
[2023-01-04 12:20] VITALS: BP 121/87
== END 2023-01-04 12:37 | disposition home or self-care (01) ==
LOC: EDUNIT# 08:48 → ER 08:49
DX: M25.551 Pain in right hip (principal); M54.16 Radiculopathy, lumbar region; Z88.5 Allergy status to narcotic agent; Z88.6 Allergy status to analgesic agent
CPT/HCPCS: 73502

== ENCOUNTER → 2023-02-08 | Outpatient (CLI) | payer MEDICARE ==
[~2023-02-08] MED LIST changes: +OXYC1TAB87 PO; +TIZA-169 PO
[2023-02-08 07:27] LABS: BASOPHILS % (AUTO) 0 % (0-10); EOSINOPHILS # (AUTO) 0.2 10^3/uL (0.0-0.3); EOSINOPHILS % (AUTO) 2 % (0-10); HEMATOCRIT 43 % (40-54); HEMOGLOBIN 14.4 g/dL (13.3-17.7); LYMPHOCYTES % (AUTO) 26 % (12-44); MEAN CORPUSCULAR HEMOGLOBIN 30 pg (25-34); MEAN CORPUSCULAR HGB CONC 34 g/dL (32-36); MEAN CORPUSCULAR VOLUME 89 fL (80-99); MONOCYTES # (AUTO) 0.5 10^3/uL (0.0-1.0); MONOCYTES % (AUTO) 7 % (0-12); NEUTROPHILS % (AUTO) 64 % (42-75); PLATELET COUNT 245 10^3/uL (130-400); WHITE BLOOD COUNT 7.8 10^3/uL (4.3-11.0)
[2023-02-08 07:46] LABS: ALBUMIN 4.2 GM/DL (3.2-4.5)
[2023-02-08 07:47] LABS: CALCIUM 9.4 MG/DL (8.5-10.1)
[2023-02-08 07:49] LABS: TOTAL PROTEIN 7.6 GM/DL (6.4-8.2)
[2023-02-08 07:50] LABS: BILIRUBIN,TOTAL 1.9 MG/DL (0.1-1.0)
[2023-02-08 07:52] LABS: CREATININE SERUM 1.05 MG/DL (0.60-1.30)
== END ==
LOC: LAB 07:09
PROVIDERS: ATTEND Family Medicine
DX: E11.65 Type 2 diabetes mellitus with hyperglycemia (principal)
CPT/HCPCS: 36415; 80053; 80061; 83036; 85025

== ENCOUNTER → 2023-05-17 | Outpatient (CLI) | payer MEDICARE ==
[2023-05-17 10:41] LABS: BASOPHILS % (AUTO) 0 % (0-10); EOSINOPHILS # (AUTO) 0.1 10^3/uL (0.0-0.3); EOSINOPHILS % (AUTO) 2 % (0-10); HEMATOCRIT 45 % (40-54); HEMOGLOBIN 14.9 g/dL (13.3-17.7); LYMPHOCYTES # (AUTO) 2.1 10^3/uL (1.0-4.0); LYMPHOCYTES % (AUTO) 22 % (12-44); MEAN CORPUSCULAR HEMOGLOBIN 30 pg (25-34); MEAN CORPUSCULAR HGB CONC 33 g/dL (32-36); MEAN CORPUSCULAR VOLUME 90 fL (80-99); MEAN PLATELET VOLUME 11.1 fL (9.0-12.2); MONOCYTES # (AUTO) 0.6 10^3/uL (0.0-1.0); MONOCYTES % (AUTO) 7 % (0-12); NEUTROPHILS # (AUTO) 6.4 10^3/uL (1.8-7.8); NEUTROPHILS % (AUTO) 69 % (42-75); PLATELET COUNT 257 10^3/uL (130-400); WHITE BLOOD COUNT 9.3 10^3/uL (4.3-11.0)
[2023-05-17 10:51] LABS: ALBUMIN 4.4 GM/DL (3.2-4.5); POTASSIUM 4.2 MMOL/L (3.6-5.0)
[2023-05-17 10:52] LABS: CALCIUM 9.6 MG/DL (8.5-10.1)
[2023-05-17 10:55] LABS: BILIRUBIN,TOTAL 1.9 MG/DL (0.1-1.0)
[2023-05-17 10:57] LABS: CREATININE SERUM 1.08 MG/DL (0.60-1.30)
== END ==
LOC: LAB 10:24
PROVIDERS: ATTEND Family Medicine
DX: E11.65 Type 2 diabetes mellitus with hyperglycemia (principal); E78.00 Pure hypercholesterolemia, unspecified; I10 Essential (primary) hypertension; E55.9 Vitamin D deficiency, unspecified
CPT/HCPCS: 36415; 80053; 80061; 82043; 82306; 83036; 85025